=== PATIENT | female | born 1970 | race Caucasian/White ===

== ENCOUNTER → 2016-07-19 14:47 | Outpatient (CLI) | payer BC ==
[2010-06-30 06:23] VITALS: BMI 34.5
[~2016-07-19 14:47] MED LIST: BAYER CHEWABLE81 MG PO; DIOVAN160 MG PO; FLAXSEED OIL1000 MG; HYDROCHLOROTHIA25 MG GT; MULTIPLE VITAMI1 TA1 PO; OMEPRAZOLE40 MG PO
[2016-07-19 16:02] LABS: CREATININE - SERUM 0.9 mg/dL (0.6-1.3)
[2016-09-14 06:30] VITALS: BMI 41.2
== END | disposition home or self-care (01) ==
LOC: D.CT 14:47
PROVIDERS: Family Medicine
DX: R93.1 Abnormal findings on diagnostic imaging of heart and coronary circulation (principal)

== ENCOUNTER → 2016-08-02 13:53 | Outpatient (CLI) | payer BC ==
[2010-06-30 06:23] VITALS: BMI 34.5
[2016-09-14 06:30] VITALS: BMI 41.2
== END | disposition home or self-care (01) ==
LOC: D.US 13:53
DX: I71.2 Thoracic aortic aneurysm, without rupture (principal)

== ENCOUNTER → 2016-08-17 16:52 | Outpatient (CLI) | payer BC ==
[2010-06-30 06:23] VITALS: BMI 34.5
[2016-09-14 06:30] VITALS: BMI 41.2
== END | disposition home or self-care (01) ==
LOC: D.MAMMO 09:00
DX: R92.8 Other abnormal and inconclusive findings on diagnostic imaging of breast (principal)

== ENCOUNTER 2016-09-14 06:07 | Outpatient (CLI) | payer BC ==
[~2016-09-14] VITALS: Ht 167.6 cm; Wt 115.9 kg
--- NOTE | ~2016-09-14 | HEMODYNAMI ---
PATIENT:ELBA LEES MEDICAL RECORD: [id number] : 66 LOCATION:ABEL ADMISSION DATE: 09/14/16 Generatedon:09/14/20169:02 Patient name: ELBA LEES Patient #: [id number] : 1970 Date of study: 09/14/2016 Page: Of Hemodynamic Procedure Report Patient Data Patient Demographics Procedure consent was obtained First Name: ELBA Gender: Female Last Name: YOANA : 1970 Middle Initial: PRETTY Age: 45 year(s) Patient #: [id number] Race: Unknown SSN: [id number] Additional ID: [id number] Contact details Address: [address] [place] [address] ROAD State: [place] City: [facility] Zip code: [address] Past Medical History Performed procedures and imaging results Date Procedure Procedure Results Comments Stress testing with Negative SPECT MPI Allergies: No known allergies Admission Admission Data Admission Date: 09/14/2016 Admission Time: 6:07 Arrival Date: 09/14/2016 Arrival Time: 0:00 Admit Source: Other Insurance Payor: Private health insurance Height (in.): 68 BSA: 2.31 (m2) Height (cm.): 172.72 BMI: 40.44 (kg/m2) Weight (lbs.): 266 Weight (kg.): 120.66 Lab Results Lab Result Date: 09/14/2016 Lab Result Time: 0:00 CBC Name Units Result Min Max Hemoglobin g/dl 11.3 *-(----)-- 13.5 17.5 Procedure Procedure Types Cath Procedure Diagnostic Procedure [facility] w/Coronaries Aortic Root Angiography Peripheral Cath Diagnostic Procedure 4-Vessel Carotid Cervical Cerebral Bialteral Subclavian Arteriogram Uni Procedure Description Procedure Date Procedure Date: 09/14/2016 Procedure Start Time: 8:34 Procedure End Time: 9:01 Procedure Staff Name Function Yvan Sherman MD Performing Physician Woody Mcbride RT Scrub Violeta Cannon RN Nurse Km Lewis RT Monitor Procedure Data Cath Procedure Fluoroscopy Diagnostic fluoroscopy Total fluoroscopy Time: 4.2 time: 4.2 min min Diagnostic fluoroscopy Total fluoroscopy dose: 726 dose: 726 mGy mGy Contrast Material Contrast Material Type Amount (ml) Isovue 300 128 Entry Location Entry Primary Successful Side Size Upsize Upsize Entry Closure Succes sful Closure Location (Fr) 1 (Fr) 2 (Fr) Remarks Device Remarks Femoral Right 5 Fr Exoseal artery Estimated blood loss: 10 ml Diagnostic catheters Device Type Used For End Catheter Placement Cordis 5Fr JL 4.0 Procedure Catheter (MP) Cordis 5Fr 3DRC Catheter Procedure (MP) Cordis 5Fr Pigtail LV Angiography Catheter (MP) Diagnostic Infinity 5Fr Procedure IM catheter Procedure Medications Medication Administration Route Dosage Oxygen NC 2 l/min Heparin Flush Bag added to field 2 bags (1000units/500ml NS) Lidocaine 2% added to field 20 Versed I.V. 1 mg Fentanyl I.V. 50 mcg Versed I.V. 1 mg Fentanyl I.V. 50 mcg Versed I.V. 1 mg Fentanyl I.V. 50 mcg Versed I.V. 1 mg Fentanyl I.V. 50 mcg Hemodynamics Rest BSA: 2.31 (m2) HGB: 11.3 (g/dl) O2 Consumption: Estimated: 244.28 (ml/min) O2 Co nsumption indexed: Estimated:105.75 (ml/min/m) Heart Rate: 88 (bpm) Pressure Samples Time Site Value (mmHg) Purpose Heart Use Rate(bpm) 8:45 LV 138/8,27 Snapshot 90 8:45 AO 136/95(113) Pullback 98 8:45 LV 143/5,23 Pullback 98 Gradients Valve Time Site 1 Site 2 Mean SEP/DFP Peak To Heart Use (mmHg) (sec/min) Peak Rate (mmHg) (bpm) Aortic 8:45 LV AO 9 23 7 98 143/5,23 136/95(113) Calculations Valve P-P Mean Valve Index Valve Source Name Gradient Area Flow (cm2) Aortic 7 9 7 9 Snapshots Pre Cath Intra NCS Post Cath Vital Signs Time Heart Resp SPO2 etCO2 [id number] NIBP (mmHg) Rhythm Pain Sedation Rate (ipm) (%) (mmHg) (mmHg) Status Level (bpm) 8:15:29 92 23 95 0 0 97/64(93) NSR 0 (11) 10(A) , No pain 8:20:18 89 22 97 0 0 129/82(105) NSR 0 (11) 10(A) , No pain 8:24:32 82 16 96 0 0 122/80(105) NSR 0 (11) 10(A) , No pain 8:28:42 81 15 96 0 0 118/85(100) NSR 0 (11) 10(A) , No pain 8:32:54 79 16 94 0 0 130/75(101) NSR 0 (11) 10(A) , No pain 8:37:06 88 16 95 0 0 119/79(111) NSR 0 (11) 10(A) , No pain 8:41:13 81 16 95 0 0 115/85(109) NSR 0 (11) 10(A) , No pain 8:46:10 95 16 96 0 0 130/88(108) NSR 0 (11) 10(A) , No pain 8:50:22 99 16 95 0 0 130/88(97) NSR 0 (11) 10(A) , No pain 8:54:32 92 16 96 0 0 133/90(115) NSR 0 (11) 10(A) , No pain 8:58:46 88 14 97 0 0 121/87(103) NSR 0 (11) 10(A) , No pain Medications Time Medication Route Dose Verified Delivered Reason Notes Effect iveness by by 8:17:00 Oxygen NC 2 Yvan Violeta Per l/min Lane Cannon RN physician 8:17:08 Heparin Flush added 2 Yvan Yvan used for Bag to bags Lane Sherman MD procedure (1000units/500ml field NS) 8:17:17 Lidocaine 2% added 20ml Yvan Yvan used for to vial Lane Sherman MD procedure field 8:23:44 Versed I.V. 1 mg Yvan Violeta for Lane Cannon RN sedation 8:23:53 Fentanyl I.V. [address] Cannon RN sedation 8:28:16 Versed I.V. 1 mg Yvan Violeta for Lane Cannon RN sedation 8:28:19 Fentanyl I.V. [address] Cannon RN sedation 8:30:39 Versed I.V. 1 mg Yvan Violeta for Lane Cannon RN sedation 8:30:45 Fentanyl I.V. [address] Cannon RN sedation 8:32:51 Versed I.V. 1 mg Yvan Violeta for Lane Cannon RN sedation 8:32:55 Fentanyl I.V. [address] Cannon RN sedation Procedure Log Time Note 7:57:20 Informed consent obtained and on chart 7:57:25 Admit Source: Other 7:57:41 Km Lewis RT(R) (CV) sent for patient. Start room use. 7:57:42 Time tracking: Regular hours 7:57:47 Plan of Care:Hemodynamics will remain stable., Cardiac rhythm will remain stable., Comfort level will be maintained., Respiratory function will remain adequate., Patient/ family verbilizes understanding of procedure., Procedure tolerated without complication., Recovers from procedure without complications.. 8:03:25 Patient Height : 68 inches 8:03:39 Patient Weight : 266 lbs 8:03:39 Insurance Payor : Private health insurance 8:03:43 Arrival Date: 09/14/2016 12:00:00 AM 8:04:21 Procedure type changed to Cath procedure, Diagnostic procedure, LHC, LHC w/Coronaries, Aortic Root Angiography, Peripheral Cath Diagnostic Procedure, 4-Vessel, Carotid Cervical Cerebral Bialteral, Subclavian Arteriogram Uni 8:04:34 Diagnostic Cath Status : Elective 8:05:14 H&P Date Dictated: 08/31/2016 Within 30 days and on chart., H&P Addendum completed by physician on day of procedure. (MUST COMPLETE FOR ALL OUTPATIENTS). 8:11:35 ACC Patient presents with No angina; no symptoms CCS Anginal Class 0--No symptoms, no angina. 8:12:57 Patient received from Pre/Post Procedure Room to CCL 1 Alert and oriented. Tansferred to table in Supine position. 8:12:59 Warm blankets applied, and dontae hugger turned on for patient comfort. 8:13:00 Correct patient and procedure confirmed by team. 8:13:06 ECG and BP/O2 sat monitors applied to patient. 8:14:10 Vital chart was started 8:16:11 Baseline sample Acquired. 8:16:18 Rhythm: sinus rhythm 8:16:23 Full Disclosure recording started 8:16:24 Pre-procedure instructions explained to patient. 8:16:26 Pre-op teaching completed and patient verbalized understanding. 8:16:28 Family in waiting room. 8:16:31 Patient NPO since Midnight. 8:17:00 Oxygen 2 l/min NC was given by Violeta Cannon RN; Per physician; 8:17:08 Heparin Flush Bag (1000units/500ml NS) 2 bags added to field was given by Yvan Sherman MD; used for procedure; 8:17:12 Patient allergic to No known allergies 8:17:17 Lidocaine 2% 20ml vial added to field was given by Yvan Sherman MD; used for procedure; 8:17:44 Is the patient allergic to Iodine/contrast media? No. 8:17:48 Is patient on blood thinner?No 8:17:57 Patient diabetic? No. 8:18:01 Patient not . Patient has had tubal. 8:18:03 ----Pre-sedation anethsthesia assessment.---- 8:18:06 Previous problem with sedation/anesthesia? No ? 8:18:14 Dentures? No ? 8:18:18 Airway obstruction? No ? 8:18:21 Sticks out tongue? Yes 8:18:23 Opens mouth fully? Yes 8:18:25 Deviated septum? No 8:18:28 Snore? Yes 8:18:30 Sleep apnea? No 8:19:01 Pre procedure: right dorsailis pedis pulse 2+ Normal; easily identifiable; not easily obliterated 8:19:07 Patient pain scale 0/10 ?. 8:19:20 IV patent on arrival in left hand with 0.9% NaCl at [facility]. 8:22:21 Lab Result : Hemoglobin 11.3 g/dl 8:22:27 Lab results completed and on chart. 8:22:34 Right groin area was prepped with chlora-prep and draped in sterile fashion 8:22:44 Alarms reviewed by R. N. 8:22:45 Sharps counted by scrub and verified by R.N. 8:22:47 Physician arrived 8:23:18 --------ALL STOP TIME OUT------ 8:23:18 Final Timeout: patient, procedure, and site verified with staff and physician. All members of the team are in agreement. 8:23:20 Right groin site verified by team. 8:23:24 Physical assessment completed. ASA score P 2 - A patient with mild systemic disease as per Yvan Sherman MD. 8:23:29 Sedation plan: IV Moderate Sedation Versed, Fentanyl 8:23:44 Versed 1 mg I.V. was given by Violeta Cannon RN; for sedation; 8:23:53 Fentanyl 50 mcg I.V. was given by Violeta Cannon RN; for sedation; 8:28:16 Versed 1 mg I.V. was given by Violeta Cannon RN; for sedation; 8:28:19 Fentanyl 50 mcg I.V. was given by Violeta Cannon RN; for sedation; 8:30:39 Versed 1 mg I.V. was given by Violeta Cannon RN; for sedation; 8:30:40 Use device set Femoral Dx 8:30:41 Acist Syringe opened to sterile field. 8:30:42 Bag Decanter opened to sterile field. 8:30:43 Medline Cath Pack opened to sterile field. 8:30:43 Terumo 5Fr [place] Sheath opened to sterile field. 8:30:45 Fentanyl 50 mcg I.V. was given by Violeta Cannon RN; for sedation; 8:30:45 St Jeff 260cm J .035 wire opened to sterile field. 8:30:47 Acist Hand Control opened to sterile field. 8:30:59 Acist Manifold opened to sterile field. 8:31:03 Diagnostic Infinity 5Fr Multipack catheter opened to sterile field. 8:31:04 Tegaderm 4 x 4 opened to sterile field. 8:31:17 Zero performed for pressure channel P1 8:32:51 Versed 1 mg I.V. was given by Violeta Cannon RN; for sedation; 8:32:55 Fentanyl 50 mcg I.V. was given by Violeta Cannon RN; for sedation; 8:33:23 Procedure started. 8:34:09 Local anesthetic to right femoral artery with Lidocaine 2% by Yvan Sherman MD.INITIAL ACCESS ONLY 8:34:29 Baseline sample Acquired. 8:36:27 A 5 Fr sheath was inserted into the Right Femoral artery 8:39:36 A Cordis 5Fr JL 4.0 Catheter (MP) was advanced over the wire and used for Procedure. 8:39:55 LCA angiography performed. 8:41:05 Catheter removed. 8:41:48 A Cordis 5Fr 3DRC Catheter (MP) was advanced over the wire and used for Procedure. 8:43:27 RCA angiography performed. 8:44:37 A Cordis 5Fr Pigtail Catheter (MP) was advanced over the wire and used for LV Angiography. 8:45:14 LV gram done using BREWER 8:45:16 LV hemodynamics recorded. 8:45:21 LV Function : Normal 8:45:29 EF : 60 % 8:45:50 Aortic Root visualized 8:48:12 Catheter removed. 8:48:27 A Diagnostic Infinity 5Fr IM catheter was advanced over the wire and used for Procedure. 8:49:57 Right carotid angiography performed. 8:51:13 Left carotid angiography performed. 8:51:37 Left subclavian angiography performed 8:51:55 Cordis 5Fr Exoseal opened to sterile field. 8:52:01 Catheter removed. 8:53:38 Sheath removed intact; hemostasis achieved with Exoseal to the Right Femoral artery. 8:53:42 Procedure ended.(Physican Out) 8:54:11 Fluoroscopy time 04.20 minutes. 8:54:19 Fluoroscopy dose: 726 mGy 8:54:19 Flurop Dose total: 726 8:54:29 Contrast amount:Isovue 300 128ml. 8:54:31 Sharps counted by scrub and verified by R.N. 8:59:07 Insertion/operative site no bleeding no hematoma. 8:59:16 Post-op/insertion site Right Femoral artery dressed using a 4 x 4 and Tegaderm. 8:59:23 Post right femoral artery:stable 9:00:23 Post Procedure Pulses reassessed and unchanged 9:00:33 Post-procedure physical assessment completed. ASA score P 2 - A patient with mild systemic disease as per Yvan Sherman MD. 9:00:37 Post procedure rhythm: unchanged. 9:00:41 Estimated blood loss: 10 ml 9:00:43 Post procedure instruction explained to patient.Patient verbalizes understanding. 9:00:44 Patient needs reinforcement of post procedure teaching. 9:00:45 Procedure and supply charges have been captured, reviewed, submitted and are correct. 9:00:47 Vital chart was stopped 9:00:48 See physician's report for complete and final results. 9:00:51 Report given to Pre/Post Procedure Room. 9:00:56 Patient transfered to Pre/Post Procedure Room with Stretcher. 9:01:00 Procedure ended. 9:01:00 Full Disclosure recording stopped 9:01:03 End room use (Document Last) Device Usage Item Name Manufacture Quantity Catalog Hospital Part Current Minimal Lo t# / Number Charge Number Stock Stock Serial# Code Acist Acist 1 71390 [id number] 670428 [id number] 20 Syringe [employer] Bag Microtek 1 2002S 308713 22866 352030 5 Decanter [employer] Medline Cardinal 1 [id number] 636185 43540 645900 5 Cath Pack Health Terumo 5Fr Terumo 1 [id number] 328955 126082 039555 [address] Jeff 1 266167 956195 999881 665932 30 260cm J .035 wire Acist Hand Acist 1 72796 867012 907717 377549 5 Control [employer] Inc Acist Acist 1 87758 519975 378931 592131 5 Manifold [employer] Inc Diagnostic Cardinal 1 [id number] 709622 68900 167286 30 Infinity Health 5Fr Multipack catheter Tegaderm 4 3M 1 1626W 088696 976829 640722 5 x 4 Cordis 5Fr Cardinal 1 [id number] 5 JL 4.0 Health Catheter (MP) Cordis 5Fr Cardinal 1 486410 5 3DRC Health Catheter (MP) Cordis 5Fr Cardinal 1 465876 5 Pigtail Health Catheter (MP) Diagnostic Cardinal 1 [id number] 529831 740830 727911 5 Infinity Health 5Fr IM catheter Cordis 5Fr Cardinal 1 EX500 864131 278286 494411 10 [employer] Signature Audit [place] Stage Time Signature Unsigned Intra-Procedure 09/14/2016 Km Lewis 9:02:21 AM RT(R) (CV) Signatures Monitor : Km Lewis RT Signature : Date : Time : [address] [place] [address]
[2016-09-14] MEDS ORDERED: HYDROCHLOROTHIA25 MG GT (06:25)
[2016-09-14] MEDS ORDERED: DIOVAN160 MG PO (06:25)
[2016-09-14] MEDS ORDERED: BAYER CHEWABLE81 MG PO (06:26)
[2016-09-14] MEDS ORDERED: OMEPRAZOLE40 MG PO (06:26)
[2016-09-14] MEDS ORDERED: FLAXSEED OIL1000 MG (06:27)
[2016-09-14] MEDS ORDERED: MULTIPLE VITAMI1 TA1 PO (06:27)
[2016-09-14 06:30] VITALS: BP 130/85; Ht 167.6 cm; Wt 115.9 kg
[2016-09-14 07:36] LABS: BASOPHILS 0.1 % (0.0-2.0); EOSINOPHILS 2.8 % (0-7); HEMATOCRIT 36.4 % (36.0-48.0); HEMOGLOBIN 11.3 g/dL (12-16); IMMATURE GRANULOCYTES 0.1 % (0-5); MCH 24.4 pg (26.0-34.0); MCV 78.4 fL (80.0-100.0); MEAN PLATELET VOLUME 9.7 fL (7.4-10.4); MONOCYTES 5.4 % (2-11); NEUTROPHILS 70.6 % (40-80); PLATELET COUNT 298 10x3/uL (130-400); RBC 4.64 10x6/uL (4.00-5.40); RDW 17.4 % (11.5-14.5); WBC 7.6 10x3/uL (4.8-10.8)
[2016-09-14 08:20] LABS: ANION GAP 14.9 mmol/L (8-16); CALCIUM 8.5 mg/dL (8.5-10.1); CARBON DIOXIDE 27.9 mmol/L (21.0-32.0); CREATININE - SERUM 0.9 mg/dL (0.6-1.3); POTASSIUM - SERUM 3.8 mmol/L (3.5-5.1)
--- NOTE | 2016-09-14 09:34 | NUR ---
0915 RECEIVED PT FROM SYSTEMS PLANNER, PT IS ALERT, DENIES ANY C/O. 5 FR EXOSEAL TO RIGHT GROIN IS CDI, NO BLEEDING OR HEMATOMA NOTED. PEDAL PULSES ARE PALPABLE. PT INSTRUCTED TO KEEP RIGHT LEG STRAIGHT AND HEAD TO PILLOW AND VERBALIZES UNDERSTANDING. OFFERED PO FLUIDS AND PT STATES DOES NOT WANT THEM AT THIS TIME. 0930 FAMILY AT BEDSIDE, CALL LIGHT IN REACH. GROIN IS STABLE WITH NO BLEEDING OR HEMATOMA NOTED. PT DENIES ANY C/O.
--- NOTE | 2016-09-14 10:00 | NUR ---
1000 PT DENIES ANY C/O. DRESSING TO RIGHT JILL IS CDI, NO BLEEDING OR HEMATOMA NOTED. VSS.
--- NOTE | 2016-09-14 11:31 | NUR ---
1030 PT DENIES ANY C/O. DRESSING REMAINS CDI, FAMILY AT BEDSIDE. 1115 IV DC'D WITH CATH INTACT. DC INSTRUCTIONS REVIEWED WITH PT AND WHO VERBALIZE UNDERSTANDING. 1130 ASSSITED PT UP TO THE BATHROOM, PT VOIDED QS. GROIN DRESSING REMAINS STABLE WTIH NO BLEEDING.
--- NOTE | 2016-09-14 11:42 | NUR ---
1135 PT ESCORTED TO PRIVATE AUTO VIA WC BY NURSE WITH DRIVING HER HOME.
--- NOTE | 2016-10-03 08:17 | OP ---
PATIENT NAME: ELBA LEES MEDICAL RECORD: [id number] :66 LOCATION:D.CAT ADMISSION DATE: SURGEON: ELSY MCKENZIE M.D. DATE OF OPERATION: 09/14/2016 REFERRING PHYSICIAN: Karine Mccord PROCEDURES PERFORMED: 1. Selective coronary angiography. 2. Left heart catheterization with ventriculogram. 3. Aortic root injection. 4. Four-vessel angiogram. INDICATION: A 45-year-old woman presents with ascending aortic aneurysm. She has been having intermittent chest discomfort from time to time, as well as dizziness. EQUIPMENT USED: A 5-Kenyan JL4, Giovani right, pigtail catheter, and mammary catheter. TECHNIQUE: A 5-Kenyan sheath was inserted in retrograde fashion in the right common femoral artery. Next, selective coronary angiography was performed in standard 5-Kenyan JL4 and Giovani right. Left heart catheterization was performed using pigtail catheter. Catheter was then pulled back in the ascending aorta to visualize the aortic root. Next, an internal mammary catheter was used to select the right common carotid artery. It was then used to select the right innominate to visualize the vertebral artery. Next, the left internal mammary catheter was placed into the left internal carotid artery selectively. Finally, left internal mammary catheter was used to cannulate the left subclavian artery to visualize the left vertebral artery. CORONARY ANATOMY: 1. Left main: Left main trunk is moderate in caliber. It gives rise to the LAD and circumflex. It is angiographically normal. 2. LAD: This is a moderate caliber vessel, which terminates proximal apex. It is a smooth-walled vessel and angiographically normal. 3. Circumflex: This vessel is moderate in caliber. It supplies the lateral branch proximal segment. The circumflex and lateral branch are smooth-walled and vessels and are angiographically normal. 4. Right coronary: This vessel is quite large and dominant. It supplies the PDA and posterolateral branch in distal segment. Both these vessel encompasses the apex. This vessel is smooth-walled and angiographically normal. 5. Left ventricle: Left ventricle is normal in size and function. No wall motion abnormalities are noted. Estimated ejection of 60%. Ascending Aorta: The ascending aorta appears to be slightly dilated above the sinus of Valsalva up to the origin of the great vessels. It appears about 4 cm in diameter. There is no evidence of dissection. There is no evidence of any aortic insufficiency seen. A 4-vessel angiogram: The right common carotid artery is large in caliber and widely patent. At the bifurcation point, there is no disease involving the right internal and external carotid artery. 6. Left internal artery: This vessel is large in caliber and widely patent. OPERATIVE REPORT [id number] ELBA LEES At the bifurcation point, there is no disease in the left internal and external carotid artery. 7. Right vertebral artery: This vessel is moderate in caliber and widely patent without disease. 8. Left vertebral artery: This vessel is large in caliber and widely patent without disease. IMPRESSION: 1. Normal coronary arteries. 2. Normal left ventricular function. 3. Slight dilation of the ascending aorta at 4 cm. RECOMMENDATIONS: At this point, we will continue with medical management. TRANSINT:[id number] Voice Confirmation ID: [id number] DOCUMENT ID: [id number] ELSY MCKENZIE M.D. at 0817 CC: [id number] DICTATION DATE: 09/14/16 09 PATIENT ASSISTANT: 09/14/16 1711 DEP CLI 09/14/16 [facility] [address] [place] [address]
== END 2016-09-14 11:35 | disposition home or self-care (01) ==
LOC: D.CATH 06:07
PROVIDERS: Internal Medicine Cardiovascular Disease
DX: I71.2 Thoracic aortic aneurysm, without rupture (principal)

== ENCOUNTER → 2017-02-06 13:41 | Outpatient (CLI) | payer BC ==
[2016-09-14 06:30] VITALS: BMI 41.2
== END | disposition home or self-care (01) ==
LOC: D.MAMMO 08:00
DX: Z12.31 Encounter for screening mammogram for malignant neoplasm of breast (principal)

== ENCOUNTER → 2017-02-14 07:53 | Outpatient (CLI) | payer BC ==
[2016-09-14 06:30] VITALS: BMI 41.2
== END | disposition home or self-care (01) ==
LOC: D.US 07:53
DX: N64.89 Other specified disorders of breast (principal)

== ENCOUNTER → 2017-07-14 08:28 | Outpatient (CLI) | payer BC ==
[2016-09-14 06:30] VITALS: BMI 41.2
== END | disposition home or self-care (01) ==
LOC: D.CT 08:28
DX: I71.2 Thoracic aortic aneurysm, without rupture (principal)

== ENCOUNTER → 2017-12-27 17:49 | Outpatient (CLI) | payer BC ==
[2016-09-14 06:30] VITALS: BMI 41.2
== END | disposition home or self-care (01) ==
LOC: D.MAMMO 15:30
DX: Z12.31 Encounter for screening mammogram for malignant neoplasm of breast (principal)

== ENCOUNTER → 2018-09-30 13:59 | Outpatient (CLI) | payer BC ==
[2016-09-14 06:30] VITALS: BMI 41.2
== END | disposition home or self-care (01) ==
LOC: D.CT 09:00
PROVIDERS: ATTEND Internal Medicine Cardiovascular Disease
DX: I71.2 Thoracic aortic aneurysm, without rupture (principal)

== ENCOUNTER 2019-01-31 08:00 | Outpatient (CLI) | payer BC ==
[2016-09-14 06:30] VITALS: BMI 41.2
== END 2019-01-31 23:59 | disposition home or self-care (01) ==
LOC: D.MAMMO 08:00
PROVIDERS: ATTEND Family Medicine
DX: Z12.31 Encounter for screening mammogram for malignant neoplasm of breast (principal)

== ENCOUNTER → 2019-12-02 12:32 | Outpatient (CLI) | payer BC ==
[2016-09-14 06:30] VITALS: BMI 41.2
== END | disposition home or self-care (01) ==
LOC: D.CT 12:32
PROVIDERS: ATTEND Internal Medicine Cardiovascular Disease
DX: I71.2 Thoracic aortic aneurysm, without rupture (principal)

== ENCOUNTER → 2020-12-27 15:04 | Outpatient (CLI) | payer BC ==
[2016-09-14 06:30] VITALS: BMI 41.2
== END | disposition home or self-care (01) ==
LOC: D.CT 14:30
PROVIDERS: ATTEND Internal Medicine Cardiovascular Disease
DX: I71.2 Thoracic aortic aneurysm, without rupture (principal)